=== PATIENT | male | born 1960 | race Caucasian/White ===

== ENCOUNTER 2017-12-27 18:08 | Emergency (ER) | payer OTHER ==
[2017-12-27] MEDS ORDERED: Ciprofloxacin TAB* 500 MG PO ONE (18:14)
[2017-12-27] MEDS ORDERED: Azithromycin TAB* 250 MG PO ONE (18:22)
[2017-12-27 18:25] VITALS: BP 161/101
--- NOTE | 2017-12-27 19:02 | UC ---
Samra Joiner Jade, scribed for Maximilian Pruitt MD on 12/27/17 at 1826 . Ear Complaint HPI - HPI Summary HPI Summary: Pt is a 57 y/o male who presents to [facility] [place] c/o left ear pain. Pt states a week and a half ago he began having a cough with phlegm and a sore throat. He states now he has pressure in his left ear, surrounding the entire ear but mainly of his eardrum. He denies any nasal congestion or wheezing. Current pain is rated 6 /10 in intensity, and is described as achy and dull. Pt denies any smoking or recent swimming. He has been taking Delsym cough suppressant for his symptoms. - History of Current Complaint Stated Complaint: CONGESTED, EAR PAIN Time Seen by Provider: 12/27/17 18:13 Hx Obtained From: Patient Onset/Duration: Gradual Onset, Lasting Weeks - 1.5 weeks, Still Present Severity Currently: Moderate Pain Intensity: 6 Pain Scale Used: 0-10 Numeric Aggravating Factors: Nothing Alleviating Factors: OTC Meds - Delsym - Allergies/Home Medications Allergies/Adverse Reactions: Allergies Allergy/AdvReac Type Severity Reaction Status Date / Time Penicillins Allergy Swelling Verified 12/27/17 18:14 Of Face,Lips,& Throat PMH/Surg Hx/FS Hx/Imm Hx Endocrine History: Other - NEGATIVE: diabetes Other Endocrine History: . Cardiovascular History: Hypertension GI/ History: Other - NEGATIVE: renal disease Other GI/ History: . - Surgical History Surgical History: Yes Surgery Procedure, Year, and Place: 2004 VIVIAN ELBOW - TENDON REPAIR[place] [facility]. 2011 PROST[facility] [place] - Family History Known Family History: Positive: Cardiac Disease, Hypertension, Diabetes - Social History Alcohol Use: Occasionally Alcohol Amount: weekends Substance Use Type: None Smoking Status (MU): Former Smoker Type: Cigarettes Amount Used/How Often: 2 PPD FOR 10 YRS Length of Time of Smoking/Using Tobacco: 10 YRS Have You Smoked in the Last Year: No When Did the Patient Quit Smoking/Using Tobacco: 23 YRS AGO - Immunization History Most Recent Influenza Vaccination: 2014 Most Recent Tetanus Shot: unknown Most Recent Pneumonia Vaccination: never Review of Systems ENT: Negative - Nasal congestion, Sore Throat, Ear Ache - Left, pressure Respiratory: Negative - Wheezing, Cough - with phlegm All Other Systems Reviewed And Are Negative: Yes Physical Exam - Summary Physical Exam Summary: General: well-appearing, no pain distress Skin: warm, color reflects adequate perfusion, dry Head: normal Eyes: EOMI, LIEN ENT: Left TM normal. Tenderness to palpation of left tragus. Rhinorrhea. Dry cough. Neck: supple, nontender Respiratory: CTA, breath sounds present Cardiovascular: RRR Abdomen: soft, nontender Bowel: present Musculoskeletal: normal, strength/ROM intact Neurological: sensory/motor intact, A&O x3 Psychological: affect/mood appropriate Triage Information Reviewed: Yes Vital Signs: Initial Vital Signs Temp 97.6 F 12/27/17 18:16 Pulse 57 12/27/17 18:16 Resp 16 12/27/17 18:16 BP 161/101 12/27/17 18:16 Pulse Ox 96 12/27/17 18:16 Vital Signs Reviewed: Yes Ear Complaint Course/Dx - Course Course Of Treatment: Medications reviewed. Allergies noted. BP noted and advised to follow up with PCP. - Differential Dx/Diagnosis Provider Diagnoses: left Otitis externa. acute bronchitis. left earache. HTN Discharge - Sign-Out/Discharge Documenting (check all that apply): Discharge/Admit/Transfer - Discharge - Discharge Plan Condition: Stable Disposition: HOME Prescriptions: Azithromycin TAB* [Zithromax TAB (Z-VINI) 250 mg #6 tabs] 250 mg PO DAILY #4 tab Neomyc/Polym/HC 1% OTIC SUSP* [Cortisporin Otic Susp 1%*] 4 drop LEFT EAR QID # 1 btl Patient Education Materials: Otitis Externa (ED), Acute Bronchitis (ED), Earache (ED) Referrals: Justo WASHINGTON,Miguel A Mendez [Primary Care Provider] - Additional Instructions: FOLLOW UP WITH YOUR DOCTOR. GET RECHECKED FOR ANY WORSENING OF YOUR CONDITION OR QUESTIONS OR CONCERNS. - Billing Disposition and Condition Condition: STABLE Disposition: Home The documentation as recorded by the Samra myers Jade accurately reflects the service I personally performed and the decisions made by me, Maximilian Pruitt MD.
== END 2017-12-27 18:30 | disposition home or self-care (01) ==
LOC: UCEAST 18:08
DX: H60.92 Unspecified otitis externa, left ear (principal); J20.9 Acute bronchitis, unspecified; I10 Essential (primary) hypertension; Z87.891 Personal history of nicotine dependence
CPT/HCPCS: 99212; A9270-GY; G0463